=== PATIENT | male | born 1990 | race Caucasian/White ===

== ENCOUNTER 2017-03-15 18:05 | Emergency (ER) | payer BC ==
[2017-03-15] MEDS ORDERED: LORAZEPAM INJ 2 MG/1 ML VIAL ONE (18:10)
[2017-03-15] MEDS ORDERED: PHENYTOIN SODIUM INJ/PF 250 MG/5 ML SDV ONE (18:22)
[2017-03-15] MEDS ORDERED: LORAZEPAM INJ 2 MG/1 ML VIAL IV ONE ×2 (18:25→20:32)
[2017-03-15] MEDS ORDERED: PHENYTOIN SODIUM INJ/PF 250 MG/5 ML SDV IV ONE (18:32)
[2017-03-15] MEDS ORDERED: ETOMIDATE INJ/PF 20 MG/10 ML SDV IV ONE (18:33)
[2017-03-15] MEDS ORDERED: SUCCINYLCHOLINE CHLORIDE INJ 200 MG/10 ML VIAL IV ONE (18:33)
[2017-03-15] MEDS ORDERED: NORMAL SALINE 1000 ML 1,000 ML IV ONE (18:35)
--- NOTE | 2017-03-15 18:42 | RADIOLOGY REPORT (SQ) ---
EXAM DESCRIPTION: CHEST SINGLE VIEW COMPLETED DATE/TIME: 03/15/2017 6:32 pm REASON FOR STUDY: ETT COMPARISON: None. EXAM PARAMETERS: NUMBER OF VIEWS: One view. TECHNIQUE: Single frontal radiographic view of the chest acquired. RADIATION DOSE: NA LIMITATIONS: Patient is slightly rotated. FINDINGS: LUNGS AND PLEURA: No opacities, masses or pneumothorax. No pleural effusion. MEDIASTINUM AND HILAR STRUCTURES: No masses. Contour normal. HEART AND VASCULAR STRUCTURES: Heart normal in size. Normal vasculature. BONES: No acute findings. HARDWARE: Endotracheal tube is identified with its tip above the level of the thoracic inlet. NG tub e is seen in course to the abdomen extending into the left upper quadrant without its tip being ident ified. OTHER: No other significant finding. IMPRESSION: NO ACUTE RADIOGRAPHIC FINDING IN THE CHEST. Tube positioning as noted above TECHNICAL DOCUMENTATION: JOB ID: [id number] [employer]- All Rights Reserved
[2017-03-15] MEDS ORDERED: ROCURONIUM BROMIDE INJ 50 MG/5 ML VIAL IV ONE ×3 (18:44→20:32)
[2017-03-15] MEDS ORDERED: METOPROLOL TARTRATE PF/INJ 5 MG/5 ML SDV IV ONE ×2 (18:59→19:00)
[2017-03-15 19:02] LABS: PARTIAL THROMBOPLASTIN TIME 36.4 SEC (23.5-35.8)
[2017-03-15 19:12] LABS: ALANINE AMINOTRANSFERASE 19 U/L (21-72); ALBUMIN 5.1 g/dL (3.5-5.0); ALKALINE PHOSPHATASE 47 U/L (38-126); ASPARTATE AMINO TRANSFERASE 31 U/L (17-59); BILIRUBIN,DIRECT 0.7 mg/dL (0.0-0.4); BILIRUBIN,TOTAL 1.6 mg/dL (0.2-1.3); BLOOD UREA NITROGEN 6 mg/dL (7-20); CALCIUM 11.1 mg/dL (8.4-10.2); CHLORIDE 103 mmol/L (98-107); CREATINE KINASE 133 U/L (55-170); GLUCOSE 269 mg/dL (75-110); HEMATOCRIT 46.6 % (37.9-51.0); MAGNESIUM 2.6 mg/dL (1.6-2.3); MEAN CORPUSCULAR HGB CONC 32.3 g/dL (32.0-36.0); MEAN CORPUSCULAR VOLUME 93 fl (80-97); PLATELET COUNT 358 10^3/uL (150-450); POTASSIUM 4.3 mmol/L (3.6-5.0); RED BLOOD COUNT 5.01 10^6/uL (4.35-5.55); RED CELL DISTRIBUTION WIDTH 13.2 % (11.5-14.0); TOTAL PROTEIN 7.6 g/dL (6.3-8.2); WHITE BLOOD COUNT 15.8 10^3/uL (4.0-10.5)
[2017-03-15 19:14] LABS: ACETAMINOPHEN < 10 ug/mL (10-30); ALCOHOL < 10 mg/dL (NONE DETECTED); SALICYLATE < 1.0 mg/dL (2.0-20.0)
--- NOTE | 2017-03-15 19:20 | RADIOLOGY REPORT (SQ) ---
EXAM DESCRIPTION: CT HEAD WITHOUT COMPLETED DATE/TIME: 03/15/2017 7:10 pm REASON FOR STUDY: unresponsive COMPARISON: None. TECHNIQUE: Axial images acquired through the brain without intravenous contrast. Images reviewed wi th bone, brain and subdural windows. Images stored on PACS. All CT scanners at this facility use dose modulation, iterative reconstruction, and/or weight based d osing when appropriate to reduce radiation dose to as low as reasonably achievable (ALARA). [facility]: Dose Right [facility]: CareDose [facility]: Dose Right [facility]: Teradose 4D [facility]: LocalCircles RADIATION DOSE: CT Rad equipment meets quality standard of care and radiation dose reduction techniq ues were employed. CTDIvol: 64.6 mGy. DLP: 1292 mGy-cm. mGy. LIMITATIONS: None. FINDINGS: VENTRICLES: Normal size and contour. CEREBRUM: No masses. No hemorrhage. No midline shift. No evidence for acute infarction. Normal gra y/white matter differentiation. No areas of low density in the white matter. CEREBELLUM: No masses. No hemorrhage. No alteration of density. No evidence for acute infarction. EXTRAAXIAL SPACES: No fluid collections. No masses. ORBITS AND GLOBE: No intra- or extraconal masses. Normal contour of globe without masses. CALVARIUM: No fracture. PARANASAL SINUSES: No fluid or mucosal thickening. SOFT TISSUES: No mass or hematoma. OTHER: Intubated. IMPRESSION: NORMAL BRAIN CT WITHOUT CONTRAST. EVIDENCE OF ACUTE STROKE: NO. COMMENT: Quality ID # [id number]: Final reports with documentation of one or more dose reduction techniques (e.g., Automated exposure control, adjustment of the mA and/or kV according to patient size, use of iterative reconstruction technique) TECHNICAL DOCUMENTATION: JOB ID: [id number] [employer]- All Rights Reserved
--- NOTE | 2017-03-15 19:21 | ER Document Report ---
ED General - General Stated Complaint: POSSIBLE SEIZURE Time Seen by Provider: 03/15/17 18:23 Mode of Arrival: Medic Information source: Friend Cannot obtain history due to: Altered mental status TRAVEL OUTSIDE OF THE [place] IN LAST 30 DAYS: No - HPI Patient complains to provider of: seizure at work Onset: Just prior to arrival Onset/Duration: Sudden Notes: Had tonic-clonic seizure at work. Witnessed by coworkers while he was sitting in a chair. He was low to the ground. #1 was called and patient was brought here via the medics. - Related Data Allergies/Adverse Reactions: No Known Allergies Allergy (Verified 08/01/15 23:23) Past Medical History - General Information source: [facility] Records - Social History Smoking Status: Current Some Day Smoker Frequency of alcohol use: None Drug Abuse: None Occupation: Works at a [employer] Lives with: Family Family History: Arthritis, DM, Malignancy - Medical History Notes: Past medical history was obtained via discussion with the patient's because patient was intubated - Past Medical History Cardiac Medical History: Reports: None Pulmonary Medical History: Reports: None EENT Medical History: Reports: None Neurological Medical History: Reports: None Endocrine Medical History: Reports: None Renal/ Medical History: Reports: None Malignancy Medical History: Reports None GI Medical History: Reports: None Musculoskeltal Medical History: Reports None Skin Medical History: Reports Hx MRSA Psychiatric Medical History: Reports: None Traumatic Medical History: Reports: None Infectious Medical History: Reports: Hx MRSA Past Surgical History: Reports: Hx Oral Surgery - wisdom - Immunizations Immunizations up to date: Yes Hx Diphtheria, Pertussis, Tetanus Vaccination: Yes Review of Systems - Review of Systems -: Yes ROS unobtainable due to patient's medical condition Physical Exam - Vital signs Vitals: Resp 29 H 03/15/17 18:23 - Notes Notes: PHYSICAL EXAMINATION: GENERAL: Is laying in the bed with right lateral deviation unresponsive gurgling with no gag reflex HEAD: Atraumatic, normocephalic. EYES: Pupils equal round and reactive to light, , sclera anicteric, conjunctiva are normal. ENT: Nares patent, oropharynx clear without exudates. Moist mucous membranes. NECK: supple without lymphadenopathy LUNGS: Breath sounds clear to auscultation bilaterally and equal. No wheezes rales or rhonchi. HEART: Regular rate and rhythm without murmurs ABDOMEN: Soft, nontender, nondistended abdomen. No guarding, no rebound. No masses appreciated. Musculoskeletal: Vascularly intact. Unable to assess strength. NEUROLOGICAL: GCS was 3 upon arrival to the emergency department PSYCH: Unable to assess SKIN: Warm, Dry, normal turgor, no rashes or lesions noted. Course - Re-evaluation Re-evalutation: 03/15/17 19:20 His heart rate was in the 160s irregular or complex. Metoprolol 5 mg IV was given and patient's heart rate is now in the 90s sinus rhythm. Another EKG is ordered. Patient's ETT tube to be advanced 3 cm. Respiratory was notified. Patient was then sent over for CT head and repeat chest x-ray. ET tube was in good placement. 03/15/17 19:22 03/15/17 19:26 Call placed to patient's Kailee at [phone]. Message left. He stated the patient is a healthy male. She states he smokes a few cigarettes daily. She states he does not drink and he does not take drugs. She states he is on Ativan and Percocets occasionally. 03/15/17 21:15 LP was performed using sterile technique. Patient was unresponsive and the was in route to the hospital. I did talk to her after the procedure was done. She thanked me for doing the procedure. I reviewed all results with her and told her the plan thus far. Talk to Dr. hwang. She states since patient has new onset seizure that transfer would be in his best interest. I did put a call to [facility] and I am waiting for the grit blaster call me back. 03/15/17 21:35 I spoke to the grit blaster [facility]. He stated he only had tell neurology but if the family was willing to transfer with the tele-neurologist available and he would accept. I did talk to the patient's she stated that she was agreeable to transfer to [facility]. Neurologist will be available in the tomorrow bedside. No ketones in the urine so I did stop the insulin as well as D5. 03/15/17 22:44 Labs- All tests 24 hr 03/15/17 03/15/17 03/15/17 18:22 18:22 18:22 WBC 15.8 H RBC 5.01 Hgb 15.0 Hct 46.6 MCV 93 MCH 30.0 MCHC 32.3 RDW 13.2 Plt Count 358 Total Counted 100 Seg Neutrophils % Not Reportable Seg Neuts % (Manual) 16 L Band Neutrophils % 4 Lymphocytes % Not Reportable Lymphocytes % (Manual) 73 H Monocytes % Not Reportable Monocytes % (Manual) 6 Eosinophils % Not Reportable Eosinophils % (Manual) 0 Basophils % Not Reportable Basophils % (Manual) 1 Absolute Neutrophils Not Reportable Abs Neuts (Manual) 3.2 Absolute Lymphocytes Not Reportable Abs Lymphs (Manual) 11.5 H Absolute Monocytes Not Reportable Abs Monocytes (Manual) 0.9 Absolute Eosinophils Not Reportable Absolute Eos (Manual) 0.0 Absolute Basophils Not Reportable Abs Basophils (Manual) 0.2 Toxic Granulation 2+ Clumped Platelets PRESENT Large Platelets PRESENT Giant Platelets PRESENT Platelet Comment ADEQUATE Poikilocytosis 1+ Tear Drop Cells SLIGHT Ovalocytes 1+ [place] Cells 1+ Schistocytes 1+ PT 16.0 H INR 1.20 APTT 36.4 H Carbonic Acid HCO3/H2CO3 Ratio ABG pH ABG pCO2 ABG pO2 ABG HCO3 ABG Total CO2 ABG O2 Saturation ABG Base Excess FiO2 Sodium 142.7 Potassium 4.3 Chloride 103 Carbon Dioxide 7 L* Anion Gap 33 H BUN 6 L Creatinine 1.28 H Est GFR ( Amer) > 60 Est GFR (Non-Af Amer) > 60 Glucose 269 H POC Glucose Serum Osmolality Lactic Acid Calcium 11.1 H Magnesium 2.6 H Total Bilirubin 1.6 H Direct Bilirubin 0.7 H Neonat Total Bilirubin Not Reportable Neonat Direct Bilirubin Not Reportable Neonat Indirect Bili Not Reportable AST 31 ALT 19 L Alkaline Phosphatase 47 Ammonia Creatine Kinase 133 CK-MB (CK-2) Troponin I Total Protein 7.6 Albumin 5.1 H Urine Color Urine Appearance Urine pH Ur Specific [place] Urine Protein Urine Glucose (UA) Urine Ketones Urine Blood Urine Nitrite Urine Bilirubin Urine Urobilinogen Ur Leukocyte Esterase Urine WBC (Auto) Urine RBC (Auto) U Hyaline Cast (Auto) Urine Bacteria (Auto) Squamous Epi Cells Auto Amorphous Sediment Auto Urine Mucus (Auto) Urine Ascorbic Acid Fluid Tube Number CSF Volume CSF Appearance CSF Color CSF WBC CSF RBC CSF Color (1) CSF Appearance (1) CSF Color (2) CSF Appearance (2) CSF Color (3) CSF Appearance (3) CSF Color (4) CSF Appearance (4) CSF Glucose CSF Total Protein Salicylates < 1.0 L Urine Opiates Screen Urine Methadone Screen Acetaminophen < 10 L Ur Barbiturates Screen Ur Phencyclidine Scrn Ur Amphetamines Screen U Benzodiazepines Scrn Urine Cocaine Screen U Marijuana (THC) Screen Serum Alcohol < 10 03/15/17 03/15/17 03/15/17 18:22 18:22 18:22 WBC RBC Hgb Hct MCV MCH MCHC RDW Plt Count Total Counted Seg Neutrophils % Seg Neuts % (Manual) Band Neutrophils % Lymphocytes % Lymphocytes % (Manual) Monocytes % Monocytes % (Manual) Eosinophils % Eosinophils % (Manual) Basophils % Basophils % (Manual) Absolute Neutrophils Abs Neuts (Manual) Absolute Lymphocytes Abs Lymphs (Manual) Absolute Monocytes Abs Monocytes (Manual) Absolute Eosinophils Absolute Eos (Manual) Absolute Basophils Abs Basophils (Manual) Toxic Granulation Clumped Platelets Large Platelets Giant Platelets Platelet Comment Poikilocytosis Tear Drop Cells Ovalocytes [place] Cells Schistocytes PT INR APTT Carbonic Acid HCO3/H2CO3 Ratio ABG pH ABG pCO2 ABG pO2 ABG HCO3 ABG Total CO2 ABG O2 Saturation ABG Base Excess FiO2 Sodium Potassium Chloride Carbon Dioxide Anion Gap BUN Creatinine Est GFR ( Amer) Est GFR (Non-Af Amer) Glucose POC Glucose Serum Osmolality Lactic Acid Calcium Magnesium Total Bilirubin Direct Bilirubin Neonat Total Bilirubin Neonat Direct Bilirubin Neonat Indirect Bili AST ALT Alkaline Phosphatase Ammonia Creatine Kinase CK-MB (CK-2) 0.78 Troponin I < 0.012 Total Protein Albumin Urine Color STRAW Urine Appearance SLIGHTLY-CLOUDY Urine pH 6.0 Ur Specific [place] 1.006 Urine Protein 100 H Urine Glucose (UA) 150 H Urine Ketones NEGATIVE Urine Blood MODERATE H Urine Nitrite NEGATIVE Urine Bilirubin NEGATIVE Urine Urobilinogen NEGATIVE Ur Leukocyte Esterase NEGATIVE Urine WBC (Auto) 2 Urine RBC (Auto) 2 U Hyaline Cast (Auto) 6 Urine Bacteria (Auto) TRACE Squamous Epi Cells Auto 2 Amorphous Sediment Auto TRACE Urine Mucus (Auto) RARE Urine Ascorbic Acid NEGATIVE Fluid Tube Number CSF Volume CSF Appearance CSF Color CSF WBC CSF RBC CSF Color (1) CSF Appearance (1) CSF Color (2) CSF Appearance (2) CSF Color (3) CSF Appearance (3) CSF Color (4) CSF Appearance (4) CSF Glucose CSF Total Protein Salicylates Urine Opiates Screen NEGATIVE Urine Methadone Screen NEGATIVE Acetaminophen Ur Barbiturates Screen NEGATIVE Ur Phencyclidine Scrn NEGATIVE Ur Amphetamines Screen NEGATIVE U Benzodiazepines Scrn UNCONFIRMED POSITIVE Urine Cocaine Screen NEGATIVE U Marijuana (THC) Screen UNCONFIRMED POSITIVE Serum Alcohol 03/15/17 03/15/17 03/15/17 18:22 19:50 19:50 WBC RBC Hgb Hct MCV MCH MCHC RDW Plt Count Total Counted Seg Neutrophils % Seg Neuts % (Manual) Band Neutrophils % Lymphocytes % Lymphocytes % (Manual) Monocytes % Monocytes % (Manual) Eosinophils % Eosinophils % (Manual) Basophils % Basophils % (Manual) Absolute Neutrophils Abs Neuts (Manual) Absolute Lymphocytes Abs Lymphs (Manual) Absolute Monocytes Abs Monocytes (Manual) Absolute Eosinophils Absolute Eos (Manual) Absolute Basophils Abs Basophils (Manual) Toxic Granulation Clumped Platelets Large Platelets Giant Platelets Platelet Comment Poikilocytosis Tear Drop Cells Ovalocytes [place] Cells Schistocytes PT INR APTT Carbonic Acid HCO3/H2CO3 Ratio ABG pH ABG pCO2 ABG pO2 ABG HCO3 ABG Total CO2 ABG O2 Saturation ABG Base Excess FiO2 Sodium Potassium Chloride Carbon Dioxide Anion Gap BUN Creatinine Est GFR ( Amer) Est GFR (Non-Af Amer) Glucose POC Glucose Serum Osmolality 293 Lactic Acid 5.4 H Calcium Magnesium Total Bilirubin Direct Bilirubin Neonat Total Bilirubin Neonat Direct Bilirubin Neonat Indirect Bili AST ALT Alkaline Phosphatase Ammonia 44.8 H Creatine Kinase CK-MB (CK-2) Troponin I Total Protein Albumin Urine Color Urine Appearance Urine pH Ur Specific [place] Urine Protein Urine Glucose (UA) Urine Ketones Urine Blood Urine Nitrite Urine Bilirubin Urine Urobilinogen Ur Leukocyte Esterase Urine WBC (Auto) Urine RBC (Auto) U Hyaline Cast (Auto) Urine Bacteria (Auto) Squamous Epi Cells Auto Amorphous Sediment Auto Urine Mucus (Auto) Urine Ascorbic Acid Fluid Tube Number CSF Volume CSF Appearance CSF Color CSF WBC CSF RBC CSF Color (1) CSF Appearance (1) CSF Color (2) CSF Appearance (2) CSF Color (3) CSF Appearance (3) CSF Color (4) CSF Appearance (4) CSF Glucose CSF Total Protein Salicylates Urine Opiates Screen Urine Methadone Screen Acetaminophen Ur Barbiturates Screen Ur Phencyclidine Scrn Ur Amphetamines Screen U Benzodiazepines Scrn Urine Cocaine Screen U Marijuana (THC) Screen Serum Alcohol 03/15/17 03/15/17 03/15/17 19:55 20:02 21:00 WBC RBC Hgb Hct MCV MCH MCHC RDW Plt Count Total Counted Seg Neutrophils % Seg Neuts % (Manual) Band Neutrophils % Lymphocytes % Lymphocytes % (Manual) Monocytes % Monocytes % (Manual) Eosinophils % Eosinophils % (Manual) Basophils % Basophils % (Manual) Absolute Neutrophils Abs Neuts (Manual) Absolute Lymphocytes Abs Lymphs (Manual) Absolute Monocytes Abs Monocytes (Manual) Absolute Eosinophils Absolute Eos (Manual) Absolute Basophils Abs Basophils (Manual) Toxic Granulation Clumped Platelets Large Platelets Giant Platelets Platelet Comment Poikilocytosis Tear Drop Cells Ovalocytes [place] Cells Schistocytes PT INR APTT Carbonic Acid 1.54 H HCO3/H2CO3 Ratio 13:1 ABG pH 7.22 L ABG pCO2 51.2 H ABG pO2 163.0 H ABG HCO3 20.3 ABG Total CO2 21.9 L ABG O2 Saturation 98.7 H ABG Base Excess -7.7 FiO2 100% Sodium Potassium Chloride Carbon Dioxide Anion Gap BUN Creatinine Est GFR ( Amer) Est GFR (Non-Af Amer) Glucose POC Glucose 121 H Serum Osmolality Lactic Acid Calcium Magnesium Total Bilirubin Direct Bilirubin Neonat Total Bilirubin Neonat Direct Bilirubin Neonat Indirect Bili AST ALT Alkaline Phosphatase Ammonia Creatine Kinase CK-MB (CK-2) Troponin I Total Protein Albumin Urine Color Urine Appearance Urine pH Ur Specific [place] Urine Protein Urine Glucose (UA) Urine Ketones Urine Blood Urine Nitrite Urine Bilirubin Urine Urobilinogen Ur Leukocyte Esterase Urine WBC (Auto) Urine RBC (Auto) U Hyaline Cast (Auto) Urine Bacteria (Auto) Squamous Epi Cells Auto Amorphous Sediment Auto Urine Mucus (Auto) Urine Ascorbic Acid Fluid Tube Number 1 CSF Volume 4.5 CSF Appearance CLEAR CSF Color COLORLESS CSF WBC 2 CSF RBC 33 CSF Color (1) COLORLESS CSF Appearance (1) CLEAR CSF Color (2) COLORLESS CSF Appearance (2) CLEAR CSF Color (3) COLORLESS CSF Appearance (3) CLEAR CSF Color (4) COLORLESS CSF Appearance (4) CLEAR CSF Glucose CSF Total Protein Salicylates Urine Opiates Screen Urine Methadone Screen Acetaminophen Ur Barbiturates Screen Ur Phencyclidine Scrn Ur Amphetamines Screen U Benzodiazepines Scrn Urine Cocaine Screen U Marijuana (THC) Screen Serum Alcohol 03/15/17 03/15/17 21:00 21:00 WBC RBC Hgb Hct MCV MCH MCHC RDW Plt Count Total Counted Seg Neutrophils % Seg Neuts % (Manual) Band Neutrophils % Lymphocytes % Lymphocytes % (Manual) Monocytes % Monocytes % (Manual) Eosinophils % Eosinophils % (Manual) Basophils % Basophils % (Manual) Absolute Neutrophils Abs Neuts (Manual) Absolute Lymphocytes Abs Lymphs (Manual) Absolute Monocytes Abs Monocytes (Manual) Absolute Eosinophils Absolute Eos (Manual) Absolute Basophils Abs Basophils (Manual) Toxic Granulation Clumped Platelets Large Platelets Giant Platelets Platelet Comment Poikilocytosis Tear Drop Cells Ovalocytes [place] Cells Schistocytes PT INR APTT Carbonic Acid HCO3/H2CO3 Ratio ABG pH ABG pCO2 ABG pO2 ABG HCO3 ABG Total CO2 ABG O2 Saturation ABG Base Excess FiO2 Sodium Potassium Chloride Carbon Dioxide Anion Gap BUN Creatinine Est GFR ( Amer) Est GFR (Non-Af Amer) Glucose POC Glucose Serum Osmolality Lactic Acid Calcium Magnesium Total Bilirubin Direct Bilirubin Neonat Total Bilirubin Neonat Direct Bilirubin Neonat Indirect Bili AST ALT Alkaline Phosphatase Ammonia Creatine Kinase CK-MB (CK-2) Troponin I Total Protein Albumin Urine Color Urine Appearance Urine pH Ur Specific [place] Urine Protein Urine Glucose (UA) Urine Ketones Urine Blood Urine Nitrite Urine Bilirubin Urine Urobilinogen Ur Leukocyte Esterase Urine WBC (Auto) Urine RBC (Auto) U Hyaline Cast (Auto) Urine Bacteria (Auto) Squamous Epi Cells Auto Amorphous Sediment Auto Urine Mucus (Auto) Urine Ascorbic Acid Fluid Tube Number 4 CSF Volume 4.5 CSF Appearance CLEAR CSF Color COLORLESS CSF WBC 1 CSF RBC 2 CSF Color (1) COLORLESS CSF Appearance (1) CLEAR CSF Color (2) COLORLESS CSF Appearance (2) CLEAR CSF Color (3) COLORLESS CSF Appearance (3) CLEAR CSF Color (4) COLORLESS CSF Appearance (4) CLEAR CSF Glucose 109 H CSF Total Protein 73 H Salicylates Urine Opiates Screen Urine Methadone Screen Acetaminophen Ur Barbiturates Screen Ur Phencyclidine Scrn Ur Amphetamines Screen U Benzodiazepines Scrn Urine Cocaine Screen U Marijuana (THC) Screen Serum Alcohol 03/15/17 22:[address] 03/15/17 18:25 IMPRESSION: NORMAL BRAIN CT WITHOUT CONTRAST. EVIDENCE OF ACUTE STROKE: NO. Chest X-Ray 03/15/17 19:02 IMPRESSION: NO ACUTE RADIOGRAPHIC FINDING IN THE CHEST. SUPPORT DEVICE(S) IN EXPECTED LOCATIONS. 03/15/17 22:48 03/15/17 22:50 - Vital Signs Vital signs: Temp Pulse Resp BP Pulse Ox 173 H 23 H 118/78 89 L 03/15/17 18:51 03/15/17 22:25 03/15/17 22:25 03/15/17 22:25 - Laboratory Result Diagrams: 03/15/17 18:22 03/15/17 18:22 Laboratory results interpreted by me: 03/15/17 03/15/17 03/15/17 18:22 18:22 18:22 WBC 15.8 H Seg Neuts % (Manual) 16 L Lymphocytes % (Manual) 73 H Abs Lymphs (Manual) 11.5 H PT 16.0 H APTT 36.4 H Carbonic Acid ABG pH ABG pCO2 ABG pO2 ABG Total CO2 ABG O2 Saturation Carbon Dioxide 7 L* Anion Gap 33 H BUN 6 L Creatinine 1.28 H Glucose 269 H POC Glucose Lactic Acid Calcium 11.1 H Magnesium 2.6 H Total Bilirubin 1.6 H Direct Bilirubin 0.7 H ALT 19 L Ammonia Albumin 5.1 H Urine Protein Urine Glucose (UA) Urine Blood CSF Glucose CSF Total Protein Salicylates < 1.0 L Acetaminophen < 10 L 03/15/17 03/15/17 03/15/17 18:22 19:50 19:50 WBC Seg Neuts % (Manual) Lymphocytes % (Manual) Abs Lymphs (Manual) PT APTT Carbonic Acid ABG pH ABG pCO2 ABG pO2 ABG Total CO2 ABG O2 Saturation Carbon Dioxide Anion Gap BUN Creatinine Glucose POC Glucose Lactic Acid 5.4 H Calcium Magnesium Total Bilirubin Direct Bilirubin ALT Ammonia 44.8 H Albumin Urine Protein 100 H Urine Glucose (UA) 150 H Urine Blood MODERATE H CSF Glucose CSF Total Protein Salicylates Acetaminophen 03/15/17 03/15/17 03/15/17 19:55 20:02 21:00 WBC Seg Neuts % (Manual) Lymphocytes % (Manual) Abs Lymphs (Manual) PT APTT Carbonic Acid 1.54 H ABG pH 7.22 L ABG pCO2 51.2 H ABG pO2 163.0 H ABG Total CO2 21.9 L ABG O2 Saturation 98.7 H Carbon Dioxide Anion Gap BUN Creatinine Glucose POC Glucose 121 H Lactic Acid Calcium Magnesium Total Bilirubin Direct Bilirubin ALT Ammonia Albumin Urine Protein Urine Glucose (UA) Urine Blood CSF Glucose 109 H CSF Total Protein 73 H Salicylates Acetaminophen Procedures - Lumbar Puncture Lumbar puncture Consent obtained: No - LP was done under emergent conditions. Patient was unresponsive. Lumbar puncture pre-procedure: Chloraprep applied, Sterile drapes applied, Other - Patient's was in route to the hospital and I could not get in touch with her. When she presented I did tell her about the lumbar puncture after it was done. She stated she was thankful I did it and would have agreed to it. Patient position: Lying Anesthetic type: 1% Lidocaine Amount/type of drainage: clear Number of attempts: 2 Complications: No Critical Care Note - Critical Care Note Total time excluding time spent on procedures (mins): 45 Comments: 45 minutes of critical care time spent in direct contact evaluating and reevaluating the patient, treating symptoms, reviewing labs and studies and speaking with family and consultants excluding any procedures Discharge - Discharge Clinical Impression: Seizure, Metabolic acidosis, Atrial fib/flutter, transient, Status epilepticus Condition: Serious Disposition: [facility] [place]
[2017-03-15 19:22] LABS: CREATINE KINASE MB 0.78 ng/mL (<4.55)
--- NOTE | 2017-03-15 19:23 | RADIOLOGY REPORT (SQ) ---
EXAM DESCRIPTION: CHEST SINGLE VIEW COMPLETED DATE/TIME: 03/15/2017 7:14 pm REASON FOR STUDY: ett repositioned (advanced) COMPARISON: 11/12/2017 1826 hours EXAM PARAMETERS: NUMBER OF VIEWS: One view TECHNIQUE: Single frontal radiograph of the chest. RADIATION DOSE: N/A LIMITATIONS: None. FINDINGS: TEMPORARY SUPPORT DEVICES:ETT in expected location. Level of the clavicles. NG tube cour ses below the kelly-diaphragm in to the stomach. LUNGS AND PLEURA: No opacities. No effusions. No masses. No pneumothorax. MEDIASTINUM AND HILAR STRUCTURES: No masses. Contour normal. HEART AND VASCULAR STRUCTURES: Heart normal in size. normal vascularity. Aorta normal for age. BONES: No acute findings. OTHER: No other significant finding. IMPRESSION: NO ACUTE RADIOGRAPHIC FINDING IN THE CHEST. SUPPORT DEVICE(S) IN EXPECTED LOCATIONS. TECHNICAL DOCUMENTATION: JOB ID: [id number] [employer]- All Rights Reserved
[2017-03-15 19:28] LABS: SODIUM 142.7 mmol/L (137-145)
[2017-03-15 19:29] LABS: TROPONIN I < 0.012 ng/mL
[2017-03-15 19:30] LABS: ABSOLUTE LYMPHOCYTES# (MANUAL) 11.5 10^3/uL (0.5-4.7); ABSOLUTE MONOCYTES # (MANUAL) 0.9 10^3/uL (0.1-1.4); ABSOLUTE NEUTROPHILS# (MANUAL) 3.2 10^3/uL (1.7-8.2); ANION GAP 33 (5-19); BAND NEUTROPHILS % (MANUAL) 4 % (3-5); BASOPHILS % (MANUAL) 1 % (0-2); EOSINOPHILS % (MANUAL) 0 % (0-6); MONOCYTES % (MANUAL) 6 % (3-13); SEGMENTED NEUTROPHILS % (MAN) 16 % (42-78); TOTAL CELLS COUNTED 100
[2017-03-15 19:34] LABS: CARBON DIOXIDE 7 mmol/L (22-30)
[2017-03-15] MEDS ORDERED: SUCCINYLCHOLINE CHLORIDE INJ 200 MG/10 ML VIAL ONE (19:35)
[2017-03-15 19:37] LABS: BURR CELLS 1+; OVALOCYTES 1+; PLATELET CLUMPS PRESENT; PLATELET COMMENT ADEQUATE; PLATELET GIANT PRESENT; PLATELET LARGE PRESENT; POIKILOCYTOSIS 1+; SCHISTOCYTES 1+; TEAR DROP CELLS SLIGHT; TOXIC GRANULATION 2+
[2017-03-15 19:38] LABS: LYMPHOCYTES % (MANUAL) 73 % (13-45)
[2017-03-15] MEDS ORDERED: DEXTROSE 5%-NORMAL SALINE 1,000 ML IV ONE (19:54)
[2017-03-15] MEDS ORDERED: INSULIN REG, HUMAN 100 UNIT/ML 3 ML VIAL (PYX) IV ONE (19:56)
[2017-03-15] MEDS ORDERED: DEXTROSE 50%-WATER 25 GM/50 ML DISP.SYRIN IV ONE (19:57)
[2017-03-15 20:06] LABS: AMORPHOUS SEDIMENT,URINE TRACE /HPF; APPEARANCE,URINE SLIGHTLY-CLOUDY; BILIRUBIN,URINE NEGATIVE (NEGATIVE); COLOR,URINE STRAW; GLUCOSE, URINE 150 mg/dL (NEGATIVE); KETONES,URINE NEGATIVE (NEGATIVE); LEUKOCYTE ESTERASE,URINE NEGATIVE (NEGATIVE); NITRITE,URINE NEGATIVE (NEGATIVE); PROTEIN,URINE 100 mg/dL (NEGATIVE); URINE SPECIFIC GRAVITY 1.006; UROBILINOGEN,URINE NEGATIVE mg/dL (<2.0)
[2017-03-15 20:19] LABS: URINE AMPHETAMINES SCREEN NEGATIVE; URINE BARBITURATES SCREEN NEGATIVE; URINE BENZODIAZEPINES SCREEN UNCONFIRMED POSITIVE; URINE COCAINE SCREEN NEGATIVE; URINE MARIJUANA (THC) SCREEN UNCONFIRMED POSITIVE; URINE METHADONE SCREEN NEGATIVE; URINE PHENCYCLIDINE SCREEN NEGATIVE
[2017-03-15 21:15] LABS: ARTERIAL BLOOD BASE EXCESS -7.7 mmol/L; ARTERIAL BLOOD FIO2 100%; ARTERIAL BLOOD H2CO3 1.54 mmol/L (1.05-1.35); ARTERIAL BLOOD HCO3 20.3 mmol/L (20-26); ARTERIAL BLOOD O2 SATURATION 98.7 % (94-98); ARTERIAL BLOOD PCO2 51.2 mmHg (35-45); ARTERIAL BLOOD PH 7.22 (7.35-7.45); ARTERIAL BLOOD TOTAL CO2 21.9 mmol/L (23-27)
[2017-03-15] MEDS ORDERED: ACYCLOVIR SODIUM INJ/PF 500 MG/10 ML SDV IV ONE (21:17)
[2017-03-15] MEDS ORDERED: PROPOFOL 100 ML IV ONE (21:29)
[2017-03-15 21:58] LABS: GLUCOSE,CSF 109 mg/dL (40-70); PROTEIN,CSF 73 mg/dL (12-60)
[2017-03-15] MEDS: PROPOFOL 100 ML IV PRN ×2 (21:58→22:50)
[2017-03-15] MEDS ORDERED: CEFTRIAXONE 2 GM/D5W RTU 2 GM/50 ML RTUPB IV SCH (22:00)
[2017-03-15 22:16] LABS: APPEARANCE ALL TUBES CLEAR; APPEARANCE TUBE 1 CLEAR; APPEARANCE TUBE 2 CLEAR; APPEARANCE TUBE 3 CLEAR; APPEARANCE TUBE 4 CLEAR; COLOR ALL TUBES COLORLESS; COLOR TUBE 1 COLORLESS; COLOR TUBE 2 COLORLESS; COLOR TUBE 3 COLORLESS; COLOR TUBE 4 COLORLESS; CSF TUBE NUMBER 1; VOLUME TUBE 1 1.5 CC
[2017-03-15 22:17] LABS: CSF TOTAL VOLUME 4.5 CC; RED BLOOD CELL,CSF 33 /uL (0-10)
[2017-03-15 22:18] LABS: WHITE BLOOD CELL,CSF 2 /uL (0-5)
[2017-03-15 22:21] LABS: APPEARANCE ALL TUBES CLEAR; APPEARANCE TUBE 1 CLEAR; APPEARANCE TUBE 2 CLEAR; APPEARANCE TUBE 3 CLEAR; APPEARANCE TUBE 4 CLEAR; COLOR ALL TUBES COLORLESS; COLOR TUBE 1 COLORLESS; COLOR TUBE 2 COLORLESS; COLOR TUBE 3 COLORLESS; COLOR TUBE 4 COLORLESS; CSF TOTAL VOLUME 4.5 CC; CSF TUBE NUMBER 4; VOLUME TUBE 1 1.5 CC
[2017-03-15 22:22] LABS: RED BLOOD CELL,CSF 2 /uL (0-10)
[2017-03-15 22:23] LABS: WHITE BLOOD CELL,CSF 1 /uL (0-5)
[2017-03-15 22:41] LABS: ALANINE AMINOTRANSFERASE 17 U/L (21-72); ALBUMIN 1.1 g/dL (3.5-5.0); ASPARTATE AMINO TRANSFERASE 16 U/L (17-59); BILIRUBIN,DIRECT 0.2 mg/dL (0.0-0.4); BILIRUBIN,TOTAL 0.7 mg/dL (0.2-1.3); BLOOD UREA NITROGEN 2 mg/dL (7-20); CARBON DIOXIDE 13 mmol/L (22-30); CHLORIDE 131 mmol/L (98-107); GLUCOSE 45 mg/dL (75-110); NEONATAL BILIRUBIN RESULT 0.5 mg/dL (0.1-1.1); SODIUM 146.2 mmol/L (137-145); TOTAL PROTEIN 2.2 g/dL (6.3-8.2)
[2017-03-15 22:47] LABS: ALKALINE PHOSPHATASE < 20 U/L (38-126)
[2017-03-15 22:54] LABS: ANION GAP 2 (5-19); CALCIUM 2.8 mg/dL (8.4-10.2); POTASSIUM 1.6 mmol/L (3.6-5.0)
--- NOTE | 2017-03-15 22:55 | EKG REPORT ---
SEVERITY:- ABNORMAL ECG - SINUS RHYTHM NONSPECIFIC INTRAVENTRICULAR CONDUCTION DELAY : Confirmed by: Yani Baldwin 15-Mar-2017 22:54:01
--- NOTE | 2017-03-15 22:55 | EKG REPORT ---
SEVERITY:- ABNORMAL ECG - ATRIAL FIBRILLATION, V-RATE 125-200 INCOMPLETE RIGHT BUNDLE BRANCH BLOCK : Confirmed by: Yani Baldwin 15-Mar-2017 22:54:17
[2017-03-15 23:09] VITALS: BP 92/58
--- NOTE | 2017-03-16 00:25 | ER Document Report ---
Doctor's Note Notes: 03/16/17 00:24 repeat chemistries resulted after the patient left. They were markedly abnormal. I am wondering if they are terminated as I believe they were drawn off the IV line. The nurse to have the patient did call to the nurse who accepted the patient and told her about the labs.
[2017-03-16 13:35] LABS: PATH REVIEW PATHOLOGIST REVIEWED
== END 2017-03-15 23:22 | disposition short-term general hospital (02) ==
LOC: ER 18:05
PROC: 009U3ZZ Drainage of Spinal Canal, Percutaneous Approach (ICD-10-PCS; principal; 2017-03-15)
DX: G40.901 Epilepsy, unspecified, not intractable, with status epilepticus (principal); E87.2 Acidosis; I48.91 Unspecified atrial fibrillation; I48.92 Unspecified atrial flutter; Z79.899 Other long term (current) drug therapy; F17.210 Nicotine dependence, cigarettes, uncomplicated
CPT/HCPCS: 93005; 96376; 99291; 96361; 51702; 96375; 96365; 96368; 36415; 87040; 87070; 87205; 82553; 82962; 80307 ×4; 82140; 87252; 82803; 82550; 83735; 83930; 85025; 85610; 85730; 89050; 82945; 84157; 80053; 81001; 84484; 83605; 71045; 70450; 93010; 62272; J3490 ×3; J0133; J2704; J2060; J1165; J1815; J0330; J7030; J0696

== ENCOUNTER 2019-03-14 21:28 | Inpatient (IN) | payer BC ==
[2019-03-14] MEDS ORDERED: VECURONIUM BROMIDE INJ 10 MG VIAL IV ONE (21:33)
[2019-03-14] MEDS ORDERED: LORAZEPAM INJ 2 MG/1 ML VIAL IV ONE (21:33)
[2019-03-14] MEDS ORDERED: DILTIAZEM HCL INJ 25 MG/5 ML VIAL IV ONE (21:41)
[2019-03-14] MEDS ORDERED: DILTIAZEM HCL INJ 25 MG/5 ML VIAL ONE (21:41)
[2019-03-14] MEDS: NORMAL SALINE 1000 ML 1,000 ML IV PRN ×2 (21:46→22:31)
[2019-03-14 21:53] LABS: HEMATOCRIT 49.8 % (37.9-51.0); HEMOGLOBIN 16.1 g/dL (13.5-17.0); MEAN CORPUSCULAR HEMOGLOBIN 29.8 pg (27.0-33.4); MEAN CORPUSCULAR HGB CONC 32.4 g/dL (32.0-36.0); MEAN CORPUSCULAR VOLUME 92 fl (80-97); PLATELET COUNT 395 10^3/uL (150-450); RED CELL DISTRIBUTION WIDTH 13.5 % (11.5-14.0); WHITE BLOOD COUNT 18.3 10^3/uL (4.0-10.5)
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
[2019-03-14 22:10] LABS: ABSOLUTE LYMPHOCYTES# (MANUAL) 7.3 10^3/uL (0.5-4.7); ABSOLUTE MONOCYTES # (MANUAL) 0.9 10^3/uL (0.1-1.4); BAND NEUTROPHILS % (MANUAL) 14 % (3-5); BASOPHILS % (MANUAL) 0 % (0-2); EOSINOPHILS % (MANUAL) 0 % (0-6); LYMPHOCYTES % (MANUAL) 36 % (13-45); MONOCYTES % (MANUAL) 5 % (3-13); PLATELET COMMENT ADEQUATE; RBC MORPHOLOGY COMMENT NORMO-CYTIC/CHROMIC; SEGMENTED NEUTROPHILS % (MAN) 41 % (42-78); TOTAL CELLS COUNTED 100
[2019-03-14 22:11] LABS: ALBUMIN 5.3 g/dL (3.5-5.0); ALKALINE PHOSPHATASE 52 U/L (38-126); ASPARTATE AMINO TRANSFERASE 34 U/L (17-59); BILIRUBIN,DIRECT 0.3 mg/dL (0.0-0.4); BLOOD UREA NITROGEN 4 mg/dL (7-20); CALCIUM 10.6 mg/dL (8.4-10.2); GLUCOSE 278 mg/dL (75-110)
[2019-03-14 22:16] LABS: CHLORIDE 98 mmol/L (98-107)
[2019-03-14 22:19] LABS: ALCOHOL < 10 mg/dL (NONE DETECTED); ANION GAP 36 (5-19)
[2019-03-14 22:21] LABS: CARBON DIOXIDE 9 mmol/L (22-30)
[2019-03-14] MEDS ORDERED: PROPOFOL 1,000 MG/100 ML INFUS..BTL IV PRN (22:22)
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
[2019-03-14 22:34] LABS: APPEARANCE,URINE CLEAR; BILIRUBIN,URINE NEGATIVE (NEGATIVE); COLOR,URINE STRAW; GLUCOSE, URINE >=500 mg/dL (NEGATIVE); KETONES,URINE NEGATIVE (NEGATIVE); LEUKOCYTE ESTERASE,URINE NEGATIVE (NEGATIVE); NITRITE,URINE NEGATIVE (NEGATIVE); PROTEIN,URINE 100 mg/dL (NEGATIVE); URINE SPECIFIC GRAVITY 1.015; UROBILINOGEN,URINE NEGATIVE mg/dL (<2.0)
[2019-03-14] MEDS ORDERED: DIAZEPAM INJ 10 MG/2 ML DISP.SYRIN IV ONE (22:47)
[2019-03-14 22:48] LABS: URINE AMPHETAMINES SCREEN NEGATIVE; URINE BARBITURATES SCREEN NEGATIVE; URINE COCAINE SCREEN NEGATIVE; URINE METHADONE SCREEN NEGATIVE; URINE PHENCYCLIDINE SCREEN NEGATIVE
[2019-03-14 22:50] LABS: URINE BENZODIAZEPINES SCREEN UNCONFIRMED POSITIVE; URINE MARIJUANA (THC) SCREEN UNCONFIRMED POSITIVE
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
[2019-03-14] MEDS ORDERED: NORMAL SALINE 1000 ML 1,000 ML IV ONE (22:57)
[2019-03-14] MEDS ORDERED: HYDROMORPHONE HCL INJ/PF 2 MG/ML AMPULE IV ONE (22:57)
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
[2019-03-14 23:11] LABS: ARTERIAL BLOOD BASE EXCESS -8.2 mmol/L; ARTERIAL BLOOD H2CO3 2.73 mmol/L (1.05-1.35); ARTERIAL BLOOD HCO3 24.8 mmol/L (20-24); ARTERIAL BLOOD O2 SATURATION 98.1 % (94-98); ARTERIAL BLOOD PO2 161.3 mmHg (80-100); ARTERIAL BLOOD TOTAL CO2 27.6 mmol/L (23-27)
[2019-03-14 23:13] LABS: ARTERIAL BLOOD FIO2 100%
[2019-03-14 23:14] LABS: ARTERIAL BLOOD PCO2 90.6 mmHg (35-45); ARTERIAL BLOOD PH 7.06 (7.35-7.45)
[2019-03-14] MEDS ORDERED: SODIUM BICARBONATE 8.4% INJ 50 MEQ/50 ML DISP.SYRIN IV ONE (23:19)
[2019-03-15 00:06] LABS: ARTERIAL BLOOD BASE EXCESS -5.5 mmol/L; ARTERIAL BLOOD FIO2 100%; ARTERIAL BLOOD H2CO3 2.46 mmol/L (1.05-1.35); ARTERIAL BLOOD HCO3 26.1 mmol/L (20-24); ARTERIAL BLOOD O2 SATURATION 99.2 % (94-98); ARTERIAL BLOOD PO2 239.2 mmHg (80-100); ARTERIAL BLOOD TOTAL CO2 28.7 mmol/L (23-27)
[2019-03-15 00:08] LABS: ARTERIAL BLOOD PCO2 81.7 mmHg (35-45); ARTERIAL BLOOD PH 7.12 (7.35-7.45)
[2019-03-15] MEDS ORDERED: RINGERS SOLUTION,LACTATED 1,000 ML IV PRN ×2 (00:40→18:27)
[2019-03-15] MEDS ORDERED: DEXTROSE 40% GEL 15 GM TUBE PO PRN ×2 (00:51)
[2019-03-15] MEDS ORDERED: GLUCAGON,HUMAN RECOMB 1 MG INJ IM PRN (00:51)
[2019-03-15] MEDS ORDERED: DEXTROSE 50%-WATER 25 GM/50 ML DISP.SYRIN IV PRN ×2 (00:51)
[2019-03-15] MEDS ORDERED: FENTANYL CITRATE INJ/PF 100 MCG/2 ML AMPUL IV ONE (00:53)
[2019-03-15] MEDS ORDERED: IPRATROPIUM/ALBUTEROL 0.5-2.5 MG/3 ML AMPUL NEB PRN (00:56)
[2019-03-15] MEDS ORDERED: INSULIN REG, HUMAN 100 UNIT/ML 3 ML VIAL (PYX) SUBCUT ONE (01:30)
[2019-03-15] MEDS ORDERED: IPRATROPIUM/ALBUTEROL 0.5-2.5 MG/3 ML AMPUL NEB ONE ×2 (01:30→04:00)
[2019-03-15] MEDS ORDERED: LORAZEPAM INJ 2 MG/1 ML VIAL ONE (02:53)
[2019-03-15] MEDS ORDERED: PROPOFOL 1,000 MG/100 ML INFUS..BTL IV ONE (03:12)
[2019-03-15] MEDS ORDERED: MORPHINE SULFATE 10 MG/ML INJ IV PRN (03:19)
[2019-03-15] MEDS ORDERED: LORAZEPAM INJ 2 MG/1 ML VIAL IV ONE (03:30)
[2019-03-15] MEDS ORDERED: MORPHINE SULFATE 10 MG/ML INJ ONE (03:34)
[2019-03-15] MEDS ORDERED: DEXAMETHASONE SOD PHOS INJ 10 MG/1 ML VIAL IV ONE (04:00)
[2019-03-15] MEDS ORDERED: MORPHINE SULFATE 10 MG/ML INJ IV ONE (04:00)
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
[2019-03-15] MEDS ORDERED: DEXMEDETOMIDINE IN 0.9 % NACL 400 MCG/100 ML RTUPB IV PRN (04:29)
[2019-03-15] MEDS: RINGERS SOLUTION,LACTATED 1,000 ML IV PRN ×2 (05:08→05:36)
[2019-03-15] MEDS ORDERED: LORAZEPAM INJ 2 MG/1 ML VIAL IV PRN (05:45)
[2019-03-15] MEDS ORDERED: PROPOFOL 1,000 MG/100 ML INFUS..BTL IV PRN (06:13)
[2019-03-15] MEDS: INSULIN REG, HUMAN 100 UNIT/ML 3 ML VIAL (PYX) SUBCUT SCH ×2 (06:15→13:02)
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
[2019-03-15 06:35] LABS: ALBUMIN 4.1 g/dL (3.5-5.0); ALKALINE PHOSPHATASE 48 U/L (38-126); ANION GAP 10 (5-19); ASPARTATE AMINO TRANSFERASE 35 U/L (17-59); BILIRUBIN,DIRECT 0.2 mg/dL (0.0-0.4); BLOOD UREA NITROGEN 4 mg/dL (7-20); CALCIUM 8.5 mg/dL (8.4-10.2); CHLORIDE 106 mmol/L (98-107); CREATINE KINASE 545 U/L (55-170); PHOSPHORUS 3.3 mg/dL (2.5-4.5); POTASSIUM 4.2 mmol/L (3.6-5.0); TOTAL PROTEIN 6.4 g/dL (6.3-8.2)
[2019-03-15 06:39] LABS: GLUCOSE 69 mg/dL (75-110)
[2019-03-15 06:40] LABS: CARBON DIOXIDE 24 mmol/L (22-30)
[2019-03-15 07:57] LABS: ABSOLUTE BASOPHILS # (AUTO) 0.2 10^3/uL (0.0-0.2); ABSOLUTE LYMPHOCYTES (AUTO) 1.9 10^3/uL (0.5-4.7); ABSOLUTE MONOCYTES (AUTO) 1.1 10^3/uL (0.1-1.4); BASOPHILS % (AUTO) 1.2 % (0-2); EOSINOPHILS % (AUTO) 0.1 % (0-6); HEMATOCRIT 40.4 % (37.9-51.0); HEMOGLOBIN 14.3 g/dL (13.5-17.0); LYMPHOCYTES % (AUTO) 12.2 % (13-45); MEAN CORPUSCULAR HEMOGLOBIN 29.8 pg (27.0-33.4); MEAN CORPUSCULAR HGB CONC 35.3 g/dL (32.0-36.0); MEAN CORPUSCULAR VOLUME 84 fl (80-97); MONOCYTES % (AUTO) 7.5 % (3-13); PLATELET COUNT 256 10^3/uL (150-450); RED BLOOD COUNT 4.79 10^6/uL (4.35-5.55); RED CELL DISTRIBUTION WIDTH 13.4 % (11.5-14.0); TOTAL CELLS COUNTED % (AUTO) 100 %; WHITE BLOOD COUNT 15.2 10^3/uL (4.0-10.5)
[2019-03-15] MEDS: ENOXAPARIN SODIUM INJ 40 MG/0.4 ML DISP.SYRIN SUBCUT SCH (10:16)
[2019-03-15] MEDS: FAMOTIDINE INJ/PF 20 MG/2 ML SDV IV SCH ×2 (10:16→21:19)
[2019-03-15] MEDS ORDERED: ALPRAZOLAM 0.5 MG TABLET PO SCH (11:45)
[2019-03-15] MEDS: ALPRAZOLAM 0.5 MG TABLET PO SCH ×2 (12:29→21:19)
[2019-03-15] MEDS: OXYCODONE-ACETAMINOPHEN 5-325 MG TABLET PO PRN ×2 (14:38→20:40)
--- NOTE | 2019-03-15 14:48 | Progress Note ---
Provider Note Provider Note: CTSP re: evaluation for liberation from mechanical ventilatory support. Patient is on Precedex and propofol infusions. He is awake and following commands. On PSV 7/5. Respiratory rate 29. Heart rate 96. Blood pressure 97/67. SPO2 95%. Follows commands. Neurological examination is normal. Assessment/Plan: Endotracheally intubated for airway protection secondary to seizure activity (suspected benzodiazepine withdrawal). Extubate. Bedside swallow evaluation. Needs to restart Xanax.
[2019-03-15] MEDS ORDERED: NICOTINE 21 MG/24 HR PATCH.TD24 TD SCH (18:30)
[2019-03-15] MEDS ORDERED: NICOTINE 21 MG/24 HR PATCH.TD24 TD ONE (19:45)
--- NOTE | 2019-03-15 21:26 | EKG REPORT ---
SEVERITY:- BORDERLINE ECG - SINUS OR ECTOPIC ATRIAL TACHYCARDIA BORDERLINE ST DEPRESSION, INFERIOR LEADS : Confirmed by: Karina Leos MD 15-Mar-2019 21:25:42
--- NOTE | 2019-03-15 21:26 | EKG REPORT ---
SEVERITY:- ABNORMAL ECG - SUPRAVENTRICULAR TACHYCARDIA LAD, CONSIDER LEFT ANTERIOR FASCICULAR BLOCK ST DEPRESSION, PROBABLY RATE RELATED : Confirmed by: Karina Leos MD 15-Mar-2019 21:25:55
[2019-03-16 04:29] LABS: ABSOLUTE BASOPHILS # (AUTO) 0.1 10^3/uL (0.0-0.2); ABSOLUTE EOSINOPHILS # (AUTO) 0.1 10^3/uL (0.0-0.6); ABSOLUTE LYMPHOCYTES (AUTO) 3.8 10^3/uL (0.5-4.7); ABSOLUTE MONOCYTES (AUTO) 0.9 10^3/uL (0.1-1.4); BASOPHILS % (AUTO) 0.5 % (0-2); EOSINOPHILS % (AUTO) 0.9 % (0-6); HEMATOCRIT 37.8 % (37.9-51.0); HEMOGLOBIN 13.3 g/dL (13.5-17.0); LYMPHOCYTES % (AUTO) 38.3 % (13-45); MEAN CORPUSCULAR HEMOGLOBIN 30.2 pg (27.0-33.4); MEAN CORPUSCULAR HGB CONC 35.1 g/dL (32.0-36.0); MEAN CORPUSCULAR VOLUME 86 fl (80-97); MONOCYTES % (AUTO) 9.6 % (3-13); PLATELET COUNT 210 10^3/uL (150-450); RED CELL DISTRIBUTION WIDTH 13.3 % (11.5-14.0); SEGMENTED NEUTROPHILS % (AUTO) 50.7 % (42-78); TOTAL CELLS COUNTED % (AUTO) 100 %; WHITE BLOOD COUNT 9.9 10^3/uL (4.0-10.5)
[2019-03-16] MEDS: ALPRAZOLAM 0.5 MG TABLET PO SCH ×3 (05:50→22:14)
[2019-03-16] MEDS: OXYCODONE-ACETAMINOPHEN 5-325 MG TABLET PO PRN ×3 (07:13→18:47)
[2019-03-16] MEDS: FAMOTIDINE INJ/PF 20 MG/2 ML SDV IV SCH ×2 (09:49→22:14)
[2019-03-16] MEDS: ENOXAPARIN SODIUM INJ 40 MG/0.4 ML DISP.SYRIN SUBCUT SCH (09:49)
--- NOTE | 2019-03-16 12:41 | PDOC CRITICAL CARE PROG REPORT ---
General Date:: 03/16/19 ICU Day:: 2 Hospital Day:: 2 Resuscitation Status: Full Code Events in the past 12 to 24 Hours:: Successfully extubated in the interim. Review of systems relevant to events:: Neurologic, respiratory Reason for ICU Addmission:: Coma, respiratory failure due to hypoxia and hypercapnia, seizure Physical Exam Vital Signs: Temp Pulse Resp BP Pulse Ox 98.1 F 94 18 113/78 93 03/16/19 03:55 03/16/19 08:00 03/16/19 08:00 03/16/19 08:00 03/16/19 08:00 Intake & Output 03/15/19 03/16/19 03/17/19 06:59 06:59 06:59 Intake Total 4189 880 Output Total 3610 1505 Balance 579 -1985 Weight 79.1 kg 80.8 kg Weight/Height Weight 80.8 kg Height 1.78 m General appearance: PRESENT: no acute distress, well-developed, well-nourished Eye exam: PRESENT: conjunctiva pink, EOMI, PERRLA. ABSENT: scleral icterus Mouth exam: PRESENT: moist, tongue midline Respiratory exam: PRESENT: clear to auscultation [place]. ABSENT: rales, rhonchi, wheezes Cardiovascular exam: PRESENT: RRR. ABSENT: diastolic murmur, rubs, systolic murmur GI/Abdominal exam: PRESENT: normal bowel sounds, soft. ABSENT: distended, guarding, mass, organolmegaly, rebound, tenderness Extremities exam: PRESENT: full ROM. ABSENT: calf tenderness, clubbing, pedal edema Neurological exam: PRESENT: alert, awake, oriented to person, oriented to place, oriented to time, oriented to situation, CN II-XII grossly intact. ABSENT: motor sensory deficit Skin exam: PRESENT: dry, intact, warm. ABSENT: cyanosis, rash Laboratory/Radiographs Laboratory Results: 03/16/19 04:13 03/15/19 05:47 03/16/19 04:13 WBC 9.9 RBC 4.40 Hgb 13.3 L Hct 37.8 L MCV 86 MCH 30.2 MCHC 35.1 RDW 13.3 Plt Count 210 Seg Neutrophils % 50.7 03/15/19 05:47 Creatine Kinase 545 H Impressions: Cervical Spine CT 03/14/19 21:34 IMPRESSION: No CT evidence for acute C-spine abnormality TECHNICAL DOCUMENTATION: Quality ID # 436: Final reports with documentation of one or more dose reduction techniques (e.g., Automated exposure control, adjustment of the mA and/or kV according to patient size, use of iterative reconstruction technique) copyright 2010 [employer]- All Rights Reserved Head CT 03/14/19 21:34 IMPRESSION: No acute intracranial abnormality TECHNICAL DOCUMENTATION: Quality ID # 436: Final reports with documentation of one or more dose reduction techniques (e.g., Automated exposure control, adjustment of the mA and/or kV according to patient size, use of iterative reconstruction technique) copyright 2010 [employer]- All Rights Reserved Abdomen/Pelvis CT 03/14/19 21:35 IMPRESSION: 1. Mild volume loss in the left lung posteriorly which may represent atelectasis or pulmonary contusion. 2. Trace extraluminal air seen between the right first rib and head of the clavicle. The origin of the air is unclear. No associated pneumothorax. No definitive evidence of vascular injury. 3. No traumatic injury is identified in the chest, abdomen or pelvis. Chest CT 03/14/19 21:35 IMPRESSION: 1. Mild volume loss in the left lung posteriorly which may represent atelectasis or pulmonary contusion. 2. Trace extraluminal air seen between the right first rib and head of the clavicle. The origin of the air is unclear. No associated pneumothorax. No definitive evidence of vascular injury. 3. No traumatic injury is identified in the chest, abdomen or pelvis. Chest X-Ray 03/15/19 00:00 IMPRESSION: New left-sided volume loss with worsening left basilar airspace opacity as above copyright 2010 [employer]- All Rights Reserved Assessment and Plan - Diagnosis (1) Acute respiratory failure with hypoxia and hypercapnia Is this a current diagnosis for this admission?: Yes Plan: Successfully liberated from mechanical ventilatory support. Wean supplemental oxygen to room air as tolerated. (2) Seizure Is this a current diagnosis for this admission?: Yes Plan: No subsequent seizure activity. Started Xanax 0.5 mg p.o. 3 times daily (half of home dose). Increase to 1 mg p.o. 3 times daily. (3) Benzodiazepine withdrawal Qualifiers: Complication of substance-induced condition: with unspecified complication Qualified Code(s): F13.239 - Sedative, hypnotic or anxiolytic dependence with withdrawal, unspecified Is this a current diagnosis for this admission?: Yes Plan: Resolved (4) Anxiety Is this a current diagnosis for this admission?: Yes (5) Chronic pain Qualifiers: Chronic pain type: chronic pain syndrome Qualified Code(s): G89.4 - Chronic pain syndrome Is this a current diagnosis for this admission?: Yes Plan: Restarted Percocet 5/325 2 tablets p.o. 4 times daily as needed (6) Tobacco abuse Is this a current diagnosis for this admission?: Yes Plan: Started nicotine transdermal 21 mg/day (03/15/2019). Decrease to 14 mg/day. (7) Tobacco abuse counseling Is this a current diagnosis for this admission?: Yes Plan: Tobacco cessation counseling provided. In particular, we did discuss the detrimental role of smoking with lowering of seizure threshold. (8) Marijuana abuse Is this a current diagnosis for this admission?: Yes Plan Summary: OK to transfer to floor today. Critical Time Critical Time (minutes): 0 Level of Care: ICU -: 1. The care of a critical patient is a dynamic process. This note is a internet sales representative synopsis but static in nature. The timeframe for treatments given in order is not necessarily the actual time these treatments may have been done. 2. This patient requires critical care secondary to ongoing requirements for therapy not offered or safe outside the critical care environment. Transfer to a lower level of care will result in altered life or limb morbidity and mortality. 3. Multidisciplinary rounds completed. 4. ABCDE bundle addressed.
[2019-03-16] MEDS ORDERED: OXYCODONE-ACETAMINOPHEN 5-325 MG TABLET PO PRN (15:53)
--- NOTE | 2019-03-16 15:57 | Progress Note ---
Provider Note Provider Note: 03/16/2019 Patient was seen in the room upstairs, 405, was in the room during the discussion. Patient wanted to sign out AMA. I talked to the patient and he decided to stay till tomorrow morning. I am going to resume his normal dose of Xanax 1 mg every 8 hours. I am also going to cut his Percocet back to 1 tablet every 6 hours as needed which is his normal dose. Patient states he normally gets 120 Percocets per month Patient states 3 years ago he had a similar episode when he tried to cut back on his Xanax. Patient has no underlying history of epilepsy
[2019-03-17] MEDS: OXYCODONE-ACETAMINOPHEN 5-325 MG TABLET PO PRN ×2 (01:07→08:09)
[2019-03-17] MEDS: ALPRAZOLAM 0.5 MG TABLET PO SCH (05:59)
[2019-03-17 08:34] VITALS: BP 133/91
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
== END 2019-03-17 09:38 | disposition home or self-care (01) | DRG 101 ==
LOC: ER 21:28 → EH 03-15 01:14 → ICU 03-15 02:33 → 4N 03-16 14:03
PROVIDERS: ADMIT Family Medicine; ATTEND Internal Medicine
PROC: 5A1935Z Respiratory Ventilation, Less than 24 Consecutive Hours (ICD-10-PCS; principal; 2019-03-14)
DX: R56.9 Unspecified convulsions (principal); F13.239 Sedative, hypnotic or anxiolytic dependence with withdrawal, unspecified; E87.2 Acidosis; F17.200 Nicotine dependence, unspecified, uncomplicated; F41.1 Generalized anxiety disorder; F12.10 Cannabis abuse, uncomplicated; T42.4X6A Underdosing of benzodiazepines, initial encounter; M19.90 Unspecified osteoarthritis, unspecified site; Z91.128 Patient's intentional underdosing of medication regimen for other reason; I48.91 Unspecified atrial fibrillation; R00.0 Tachycardia, unspecified; E86.1 Hypovolemia; R73.9 Hyperglycemia, unspecified; G89.4 Chronic pain syndrome; Z83.3 Family history of diabetes mellitus; Z86.14 Personal history of Methicillin resistant Staphylococcus aureus infection; V43.02XA Car driver injured in collision with other type car in nontraffic accident, initial encounter; Y92.414 Local residential or business street as the place of occurrence of the external cause
CPT/HCPCS: 36415; 70450; 71045; 71260; 72125; 74177; 80053; 80307; 81001; 82550; 82803; 82962; 83735; 84100; 85025; 93005; 93010; 94002; 94003; 94640; 94799; 96361; 96374; 96375; 99291; 99292; J1170; J1650; J1815; J2060; J2704; J3010; J3360; J3490; J7030; J7120; J7620; S0028